=== PATIENT | female | born 1945 | race Caucasian/White ===

== ENCOUNTER 2023-08-01 10:26 | Emergency (ER) | payer MEDICARE, OTHER, SELFPAY ==
[2023-08-01 10:47] VITALS: BP 190/89
[2023-08-01 11:04] VITALS: BMI 31.6
--- NOTE | 2023-08-01 11:22 | ED.GENMED ---
History of Present Illness
General
Chief Complaint: Blood Pressure Problem
Source: patient and spouse
Time Seen by Provider: 08/01/23 10:56
Travel History
Have you had any contact with someone who has COVID-19?: No
Do you have any symptoms of coronavirus? Fever > 100 degrees, chills, cough, shortness of breath, sore throat, loss of taste or smell, muscle aches, or headache?: No
History of Present Illness
History of Present Illness:
77-year-old female presents to the emergency room complaining of elevated blood pressure and headache. Patient states she began having some pressure in her head about a week ago. In the past this has been a marker of elevated blood pressure. She
began taking her blood pressure each day and it been in the 150s to 160s range. This morning she took her blood pressure and it was in the 180s range. She denies chest pain she denies shortness of breath. She denies abdominal pain, back pain or
any focal neurologic complaints. Patient takes losartan 40 mg twice a day for blood pressure as well as atenolol 50 mg a day. She took Claritin for allergies but no other [id number] medication. She did not take Claritin-D but just plain
Claritin.
Past History
Past History
ED Past Medical History: HTN, Hypercholesterolemia, NIDDM and Other (Kidney stones)
ED Past Surgical History: Cholecystectomy, , Orthopedic (Lower back surgery) and Other (Corneal transplant)
Social History
Tobacco: Non-smoker
Personal:
Living: with family
Employment: Retired
Phy Exam
Physical Exam
Physical Exam:
General: Awake, Alert, Oriented X3. No acute distress.
Vitals: unremarkable
Head: Atraumatic
Eyes: Pupils equal, EOMI
Throat: Airway intact, no exudates
Neck: Trachea midline
Lungs: Clear and equal b/l
Heart: Regular rate, no murmurs
Abd: Soft, Nontender, No pulsatile mass
Neuro: Nonfocal
Skin: Warm, dry, no rash
Extremities: pulses equal b/l, trace edema
Course
Orders/Labs/Results
Orders:
Orders
08/01/23 11:22
Electrocardiogram (*1) Urgent
Reason for Study: Hypertension, Benign
EKG- Treatment ONCE
08/01/23 11:26
CR Chest - 2 Views Urgent
Comment:
Reason For Exam: sob
08/01/23 11:31
Basic Metabolic Panel Urgent
Complete Blood Count/With Diff Urgent
TSH Reflex To Free T4 Urgent
Urinalysis Reflex To Culture Urgent
Date Specimen was Collected: 08/01/23
Time Specimen was Collected: 11:23
Urine Microscopic Reflex Cult Urgent
08/01/23 11:50
NT-proBNP Urgent
Abnormal Lab Results
08/01/23
11:31
Glucose 149 H mg/dl
(70-99)
Ur Occult Blood Reflex Trace A
(Negative)
Urine Yeast Few A
(Negative)
08/01/23 11:31
08/01/23 11:31
Vital Signs
Initial and Last Documented VS:
Initial Vital Signs
Temp Pulse Resp BP Pulse Ox
99.5 F 66 16 190/89 98
08/01/23 10:47 08/01/23 10:47 08/01/23 10:47 08/01/23 10:47 08/01/23 10:47
Last Documented Vital Signs
Temp Pulse Resp BP Pulse Ox
99.5 F 66 16 153/119 98
08/01/23 10:47 08/01/23 10:47 08/01/23 10:47 08/01/23 12:00 08/01/23 10:47
MDM/Problems Addressed
Differential Diagnosis Includes:
Uncontrolled hypertension, hypothyroidism, renal failure
MDM/Problems Addressed:
Pt does have elevated bp but no signs of end organ dysfunction. Labs unremarkable. Recommend patient increase dose of valsartan to 160 in the evenings. Follow-up with cardiology as scheduled.
Chronic conditions affecting care: HTN
*Radiology
Radiology exam reviewed: radiology read reviewed
*Pulse Oximetry
Patient hypoxic: no
*EKG
Interpreted by ED Provider?: Yes
Interpretation: normal
Comparison EKG: no comparison EKG present
Heart Rate: 61
Rate: normal
Rhythm: sinus
[place]: normal axis
Interval: normal interval
QRS Pattern: normal QRS
Ischemia: no ischemia
*Gun Mechanic Interpretation
Rate: normal
Interpretation: normal
Rhythm: sinus
*Critical Care Note
Total Time (30-74mins, 75-104mins- exclusive of procedures): Not Applicable
Patient Management
Social determinants of health affecting care: Strong social support
ED Attending Note
-
Portions of this chart may have been created with voice recognition software.� Occasional wrong word or��sound alike� substitutions may have occurred due to the inherent limitations of voice recognition software.
Discharge Plan
Departure
Patient Disposition: Home (Routine Discharge)
Date of Disposition: 08/01/23
Time of Disposition: 12:52
Patient with high blood pressure during this ER visit?: Yes
Condition: Good
Discharge Problem:
Uncontrolled hypertension
Instructions: High Blood Pressure (DC)
Prescriptions:
No Action
valsartan 80 MG tablet
80 mg PO DAILY
loratadine 10 MG tablet
10 mg PO HS
rosuvastatin 5 MG tablet
5 mg PO QPM
montelukast 10 MG tablet
10 mg PO QPM
albuterol sulfate 1 PUFF HFA aerosol inhaler
2 puff inhalation R [id number] PRN (Reason: sob)
metformin 500 MG tablet
500 mg PO NOON
atenolol 50 MG tablet
50 mg PO DAILY
prednisone 50 MG tablet
50 mg PO DAILY Qty: 3 0RF
benzonatate 100 MG capsule
100 mg PO TIDPRN PRN (Reason: cough) Qty: 20 0RF
Referrals:
Juanjo Malone DO [Family Provider] -
Activity Restrictions/Additional Instructions:
Increase the dose of your valsartan to 160mg in the evening and stay at 80mg in the morning. Follow up with Dr. Kaufman as scheduled.
Interventions
Interventions:
*Risk Screen - Suicide Last Done: 08/01/23 11:34
*General Assessment Last Done: 08/01/23 11:34
*Neglect/Abuse Screening Last Done: 08/01/23 11:34
ED- Fall Risk Assessment Last Done: 08/01/23 11:04
*ED COVID-19 Vaccine History Last Done: 08/01/23 10:47
*Nursing Disposition Last Done: 08/01/23 13:18
ED- Cardiac Assessment Last Done: 08/01/23 11:04
ED- Neurological Assessment Last Done: 08/01/23 11:04
ED- Pulmonary Assessment Last Done: 08/01/23 11:04
Discharge Date and Time
Discharge Date/Time: 08/01/23 13:40
Print Language: GEORGIAN
[2023-08-01 11:46] LABS: Urine Albumin Negative (Neg - Trace); Urine Bilirubin Negative (Negative); Urine Character Clear (Clear); Urine Color Yellow; Urine Glucose Negative (Negative); Urine Ketone Negative (Negative); Urine Leukocyte Negative (Negative); Urine Nitrite Negative (Negative); Urine Occult Blood Trace (Negative); Urine Urobilinogen Negative (Neg - 1+)
[2023-08-01 11:51] LABS: Blood Urea Nitrogen 12 mg/dl (7-17); Calcium 9.7 mg/dl (8.4-10.2); Carbon Dioxide 29 mmol/L (22-30); Chloride 105 mmol/L (98-107); Estimated Creatinine Clearance 74 ml/min; Glucose 149 mg/dl (70-99); Potassium 3.9 mmol/L (3.5-5.1); Sodium 141 mmol/L (135-145); eGFR > 60.00
[2023-08-01 11:56] LABS: Urine Red Blood Cell 0-2 /HPF (0-2); Urine White Cell None Seen /HPF (0-5); Urine Yeast Few (Negative)
[2023-08-01 12:00] VITALS: BP 153/119
[2023-08-01 12:07] LABS: % Basophils 0.3 % (0-2); % Eosinophils 0.9 % (0-6); % Immature Granulocytes 0.5 % (0-0.5); % Lymphocytes 21.2 % (20.5-51.1); % Monocytes 5.9 % (1.7-9.3); % Neutrophils 71.2 % (42.2-75.2); Absolute Eosinophils 0.1 10^3/uL (0-0.7); Absolute Lymphocytes 1.4 10^3/uL (1.2-3.4); Absolute Monocytes 0.4 10^3/uL (0.1-0.6); Absolute Neutrophils 4.7 10^3/uL (1.4-6.5); Hematocrit 42.3 % (37.0-47.0); Hemoglobin 14.5 g/dL (12.0-16.0); Mean Corp Hgb Conc. 34.3 g/dL (33.0-37.0); Mean Corpuscular Volume 84.6 fL (81.0-99.0); Mean Platelet Volume 9.1 fL (7.4-10.4); Nucleated Red Blood Cells % 0 %; Platelet Count 247 10^3/uL (130-400); Red Cell Dist. Width 12.1 % (11.5-14.5); White Blood Cell Count 6.6 10^3/uL (4.8-10.8)
[2023-08-01 12:28] LABS: NT-proBNP 141 pg/ml
== END 2023-08-01 13:40 | disposition home or self-care (01) ==
LOC: EMR 10:26
PROVIDERS: EMERGENCY PHYSICIAN Emergency Medicine; FAMILY PHYSICIAN Internal Medicine
DX: I10 Essential (primary) hypertension (principal); R51.9 Headache, unspecified; E78.00 Pure hypercholesterolemia, unspecified; E11.9 Type 2 diabetes mellitus without complications; Z87.442 Personal history of urinary calculi; Z90.49 Acquired absence of other specified parts of digestive tract
CPT/HCPCS: 99283; 71046; 80048; 81003; 81015; 83880; 84443; 85025; 93005

== ENCOUNTER → 2023-12-14 15:28 | Outpatient (REF) | payer MEDICARE, OTHER, SELFPAY | LOC: WDC 15:28 | PROVIDERS: ATTENDING PHYSICIAN Internal Medicine | DX: Z12.31 Encounter for screening mammogram for malignant neoplasm of breast (principal) | CPT/HCPCS: 77063; 77067 ==